=== PATIENT | male | born 1955 | race Two or more races ===

== ENCOUNTER 2021-04-13 02:34 | Emergency (ER) | payer BC ==
[~2021-04-13] VITALS: Ht 180.3 cm; Wt 99.8 kg
[2021-04-13] MEDS ORDERED: CELEXA10 MG (02:52)
[2021-04-13] MEDS ORDERED: ATORVASTATIN CA20 MG (02:53)
[2021-04-13] MEDS ORDERED: PYRIDIUM DS200 MG PO (04:53)
[2021-04-13] MEDS ORDERED: CEPHALEXIN500 MG PO (04:53)
== END 2021-04-13 04:58 ==
LOC: ER 02:34
DX: N39.0 Urinary tract infection, site not specified (principal)

== ENCOUNTER 2021-07-20 09:57 | Emergency (ER) | payer BC ==
[~2021-07-20] VITALS: Ht 180.3 cm; Wt 99.8 kg
[~2021-07-20 09:57] MED LIST: ATORVASTATIN CA20 MG; CELEXA10 MG; CEPHALEXIN500 MG PO; PYRIDIUM DS200 MG PO
== END 2021-07-20 13:03 | disposition home or self-care (01) ==
LOC: ER 09:57
DX: N39.0 Urinary tract infection, site not specified (principal); Z85.46 Personal history of malignant neoplasm of prostate

== ENCOUNTER 2021-07-20 13:44 | Outpatient (CLI) | payer BC | END 2021-07-20 13:52 | disposition home or self-care (01) | LOC: LAB 13:44 | PROVIDERS: ATTEND General Practice | DX: Z11.3 Encounter for screening for infections with a predominantly sexual mode of transmission (principal) ==

== ENCOUNTER 2022-05-08 14:15 | Outpatient (CLI) | payer OTHER, BC | END 2022-05-08 14:24 | disposition home or self-care (01) | LOC: RAD 14:15 | PROVIDERS: ATTEND Orthopaedic Surgery | DX: M25.561 Pain in right knee (principal); M25.562 Pain in left knee ==